=== PATIENT | female | born 1990 | race American Indian/Alaskan Native ===

== ENCOUNTER 2019-05-04 20:22 | Emergency (ER) | payer OTHER, MEDICAID ==
[2019-05-04 21:32] VITALS: BP 120/74
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
--- NOTE | 2019-05-05 00:32 | XRay Report ---
Left shoulder, 3 views INDICATION: Intermittent pain x1 week FINDINGS: The joint space is maintained. There is no fracture or dislocation. No spurring or arthriti c change. No bone lesion or periostitis. No significant abnormality. IMPRESSION: Negative study Signer Name: Tom Bourne MD Signed: 05/05/2019 12:27 AM Workstation Name: [id number]
[2019-05-05] MEDS ORDERED: IBUPROFEN PO ONE (00:50)
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
== END 2019-05-05 03:35 | disposition home or self-care (01) ==
LOC: ED 20:22
DX: S46.912A Strain of unspecified muscle, fascia and tendon at shoulder and upper arm level, left arm, initial encounter (principal); S76.012A Strain of muscle, fascia and tendon of left hip, initial encounter; Z79.899 Other long term (current) drug therapy; V49.49XA Driver injured in collision with other motor vehicles in traffic accident, initial encounter; Y93.89 Activity, other specified; Y92.410 Unspecified street and highway as the place of occurrence of the external cause; Y99.8 Other external cause status